=== PATIENT | female | born 1995 | race African-American/Black ===

== ENCOUNTER → 2017-06-15 | Outpatient (CLI) | payer MEDICARE, MEDICAID ==
[2017-06-15 12:45] LABS: 24 HR URINE CREAT RESULT 2.6 mg/day (0.8-2.0); URINE CREATININE 108.8 mg/dL (16-327)
[2017-06-15 12:52] LABS: 24 HOUR URINE PROTEIN RESULT 7121 mg/day (42-225); URINE PROTEIN 299.2 mg/dL (<12)
[2017-06-15 13:24] LABS: CHOLESTEROL 208.45 mg/dL (0-200); TRIGLYCERIDES 107 mg/dL (<150)
[2017-06-15 13:35] LABS: DIRECT LDL 124 mg/dL (<100)
== END ==
LOC: OD 11:16
PROVIDERS: ATTEND Pediatrics Pediatric Nephrology
DX: L73.9 Follicular disorder, unspecified (principal); M32.14 Glomerular disease in systemic lupus erythematosus; I10 Essential (primary) hypertension
CPT/HCPCS: 36415; 80061; 80197; 82570; 84156

== ENCOUNTER → 2019-03-22 | Outpatient (CLI) | payer MEDICARE, MEDICAID ==
--- NOTE | 2019-03-22 16:19 | RADIOLOGY REPORT (SQ) ---
EXAM DESCRIPTION: VENOUS BILATERAL LOWER COMPLETED DATE/TIME: 03/22/2019 3:25 pm REASON FOR STUDY: BLE M32.14 M32.14 GLOMERULAR DISEASE IN SYSTEMIC LUPUS ERYTHEMATOSUS COMPARISON: None. TECHNIQUE: Dynamic and static torres scale and color images acquired of both lower extremity venous sy stems. Selected spectral images acquired with additional compression and augmentation maneuvers. Imag es stored on PACS. LIMITATIONS: None. FINDINGS: RIGHT LEG COMMON FEMORAL AND FEMORAL: Normal phasicity, compression and augmentation. No visualized echogenic m aterial on torres scale. No defects on color images. POPLITEAL: Normal compression and augmentation. No visualized echogenic material on torres scale. No de fects on color images. CALF VESSELS: Normal compression and augmentation. No visualized echogenic material on torres scale. No defects on color image. GSV AND SSV: Normal compression. No visualized echogenic material on torres scale. No defects on color images. ANY DEEP VENOUS INSUFFICIENCY: No. ANY EVIDENCE OF POPLITEAL CYST: No. OTHER: No other significant finding. LEFT LEG COMMON FEMORAL AND FEMORAL: Normal phasicity, compression and augmentation. No visualized echogenic m aterial on torres scale. No defects on color images. POPLITEAL: Normal compression and augmentation. No visualized echogenic material on torres scale. No de fects on color images. CALF VESSELS: Normal compression and augmentation. No visualized echogenic material on torres scale. No defects on color images. GSV AND SSV: Normal compression. No visualized echogenic material on torres scale. No defects on color images. ANY DEEP VENOUS INSUFFICIENCY: No. ANY EVIDENCE POPLITEAL CYST: No. OTHER: No other significant finding. IMPRESSION: NO EVIDENCE DVT OR SVT IN EITHER LEG. TECHNICAL DOCUMENTATION: JOB ID: [id number] [employer]- All Rights Reserved Reading location - IP/workstation name: [email or web address]
== END ==
LOC: SP 10:49
PROVIDERS: ATTEND Internal Medicine
DX: M32.14 Glomerular disease in systemic lupus erythematosus (principal)
CPT/HCPCS: 93970